=== PATIENT | male | born 1960 | race Caucasian/White ===

== ENCOUNTER 2022-11-21 08:27 | Inpatient (IN) ==
--- NOTE | 2022-10-17 10:05 | Anesthesiology Consultation ---
Date of Service October 17, 2022 Assessment & Plan (1) Encounter for pre-operative examination: Chart Review Chart Review: Acceptable Risk for Surgery (pending 10/16/22 PCP visit and preop Covid test 10/20/22 results ) and Patient NOT seen in Pre Admission Testing - Awaiting PCP office visit 10/16/22 (please fax for) -COVID screening: Per PAT nursing assessment on 10/17/22. Pt admits to recent cough- saw PCP 10/16/22 and PCP felt cough was not concerning. Due to patient being admission status and cough within 10 days of surgery- preop Covid test ordered for 10/20/22 to be done at [facility]- will await results. No known COVID-19 positive contacts or current COVID-19 related symptoms. Travel screen negative. Patient vaccinated for Covid. History Surgery Operation Date: 10/24/22 11:55 Proposed Procedures p L4-L5 Decompression and Fusion Instrumentation, Spinal Cord Monitoring - Sandor Chavez DO Height/Weight Height: 5 ft 9 in Weight: 129.274 kg Allergies Allergy/AdvReac Type Severity Reaction Status Date / Time Sulfa (Sulfonamide Allergy Severe SEVERE Verified 10/17/22 08:47 Antibiotics) RASH, HEADACHE tolmetin Allergy Unknown skin Verified 10/17/22 08:47 breakout, light sensitivity Medications Home Medications Medication Instructions Recorded Confirmed Last Taken amlodipine 10 mg tablet 10 mg PO QAM 08/27/22 10/17/22 08/27/22 atorvastatin 20 mg tablet 20 mg PO QAM 08/27/22 10/17/22 08/27/22 cholecalciferol (vitamin D3) 125 250 mcg PO QAM 08/27/22 10/17/22 08/27/22 mcg (5,000 unit) tablet (Vitamin D3) levothyroxine 25 mcg tablet 25 mcg PO QAM 08/27/22 10/17/22 08/27/22 (Synthroid) losartan 100 mg tablet 100 mg PO QAM 08/27/22 10/17/22 08/27/22 meloxicam 15 mg tablet 15 mg PO QAM 08/27/22 10/17/22 08/27/22 omeprazole 20 mg capsule,delayed 20 mg PO QAM 08/27/22 10/17/22 08/27/22 release sertraline 50 mg tablet 50 mg PO QAM 08/27/22 10/17/22 08/27/22 acetaminophen 500 mg tablet 1,000 mg PO Q6H PRN Pain 10/17/22 10/17/22 Unknown tramadol 50 mg tablet 50 mg PO Q12H PRN Pain 10/17/22 10/17/22 Unknown Past Medical History Medical History History of anxiety History of chronic back pain Hx of gastroesophageal reflux (GERD) Hyperlipidemia Hypertension Hypothyroidism Lumbar radiculopathy Past Surgical History Surgical History History of hip surgery 2012-resurface of rt. hip History of total left hip arthroplasty History of total left knee replacement Hx of colonoscopy w/ polypectomy Hx of inguinal hernia repair Social History Smoking Status: Never smoker Do You Dip or Chew Tobacco: No Hx Alcohol Use: Yes Alcohol type: beer alcohol intake frequency: a few times a month Hx Substance Use: No substance use type: does not use Lab Results Anesthesia Preop Results Results Anesthesia Widget: WBC 6.52 K/ul (4.8-10.8) 09/23/22 Hgb 14.6 g/dl (14.0-18.0) 09/23/22 Hct 42.6 % (40.1-51.0) 09/23/22 Plt 237 K/uL (130-400) 09/23/22 Na 138 mmol/L (136-145) 09/23/22 K 3.9 mmol/L (3.5-5.1) 09/23/22 Cl 107 mmol/L (98-107) 09/23/22 CO2 25 mmol/L (21-32) 09/23/22 BUN 20 mg/dl (6-23) 09/23/22 Creat 0.91 mg/dl (0.6-1.4) 09/23/22 Glucose Level 104 mg/dl (70-99(Fasting)) H 09/23/22 PT 10.3 Seconds (9.0-12.0) 09/23/22 PTT 28.3 Seconds (21.0-31.0) 09/23/22 INR 1.0 (0.9-1.1) 09/23/22 Urine Color Yellow 09/23/22 Urine Appearance Clear (Clear) 09/23/22 Urine pH 5.0 (4.5-7.5) 09/23/22 Urine Specific Lulu 1.020 (1.000-1.030) 09/23/22 Urine Protein Negative (Negative) 09/23/22 Urine Glucose (UA) Negative (Negative) 09/23/22 Urine Ketones Negative (Negative) 09/23/22 Urine Blood Negative (Negative) 09/23/22 Urine Nitrite Negative (Negative) 09/23/22 Urine Bilirubin Negative (Negative) 09/23/22 Urine Urobilinogen Negative (Negative) 09/23/22 Urine Leukocyte Esterase Negative (Negative) 09/23/22 Blood Type O Positive 09/23/22 Antibody Screen NEGATIVE 09/23/22 Testing Electrocardiogram Date: 09/23/22 SR with sinus arrhythmia with 1st degree AVB at 82bpm. Left axis deviation. When compared to EKG from May 26, 2013- NC interval has increased, QRS shifted left per cardio Chest X-Ray Date: 09/23/22 Findings: + NAD and + cardiomegaly (mild) Stress Test Date: 01/04/20 Type: exercise Exercise stress EKG is negative for ischemia at a workload of 10 METS. Patient did not, however, complete stage III of Yemi protocol. MPHR 88%. Stress test was stopped on account of the patient's complaint of dyspnea and fatigue, no chest pain was reported.
[~2022-11-21 08:27] MED LIST: ACETAMINOPHEN 500 MG TAB PO SCH; GABAPENTIN 600 MG DOSE PO SCH; LR 15ML/HR IV SCH; MIDAZOLAM HCL 1 MG/ML 2ML VIAL ONE; SUGAMMADEX SODIUM 200 MG/2 ML VIAL IV ONE; fentaNYL citrate 100 MCG/2 ML VIAL ONE
[2022-11-21] MEDS ORDERED: ePHEDrine sulfate 50 MG/ML AMP IV PRN (09:43)
[2022-11-21] MEDS ORDERED: ATROPINE SULFATE 0.1 MG/ML 10ML SYR IV PRN (09:43)
[2022-11-21] MEDS ORDERED: HYDROmorphone INJ 2 MG/ML SYR/VIAL IV PRN (09:43)
[2022-11-21] MEDS ORDERED: ONDANSETRON INJ 2 MG/ML 2 ML VIAL IV PRN ×2 (09:43→15:34)
--- NOTE | 2022-11-21 10:06 | History & Physical Bridge Note ---
Date of Service November 21, 2022 History & Physical Bridge Note I have examined the patient, reviewed the History & Physical and in the interval since the performance of the History & Physical I have noted the following changes of clinical significance: no changes noted
--- NOTE | 2022-11-21 10:07 | History & Physical Report ---
Date of Service November 21, 2022 Assessment & Plan (1) Neurogenic claudication due to lumbar spinal stenosis: Plan: L4-L5 decompression and fusion History of Present Illness Chief Complaint: Back and leg pain Primary Care Provider: Mahin Plummer This is a 61-year-old male presents with chronic persistent back and leg pain after failing such course of nonoperative care is here for surgical invention. Allergies Allergy/AdvReac Type Severity Reaction Status Date / Time Sulfa (Sulfonamide Allergy Severe SEVERE Verified 11/21/22 08:53 Antibiotics) RASH, HEADACHE tolmetin Allergy Unknown skin Verified 11/21/22 08:53 breakout, light sensitivity Home Medications Medication Instructions Recorded Confirmed Type amlodipine 10 mg tablet 10 mg PO QAM 08/27/22 11/21/22 History atorvastatin 20 mg tablet 20 mg PO QAM 08/27/22 11/21/22 History cholecalciferol (vitamin D3) 125 250 mcg PO QAM 08/27/22 11/21/22 History mcg (5,000 unit) tablet (Vitamin D3) levothyroxine 25 mcg tablet 25 mcg PO QAM 08/27/22 11/21/22 History (Synthroid) losartan 100 mg tablet 100 mg PO QAM 08/27/22 11/21/22 History meloxicam 15 mg tablet 15 mg PO QAM 08/27/22 11/21/22 History omeprazole 20 mg capsule,delayed 20 mg PO QAM 08/27/22 11/21/22 History release sertraline 50 mg tablet (Zoloft) 50 mg PO QAM 08/27/22 11/21/22 History acetaminophen 500 mg tablet 1,000 mg PO Q6H PRN Pain 10/17/22 11/21/22 History tramadol 50 mg tablet 50 mg PO Q12H PRN Pain 10/17/22 11/21/22 History Past Med/Surg History Medical History History of anxiety History of chronic back pain Hx of gastroesophageal reflux (GERD) Hyperlipidemia Hypertension Hypothyroidism Lumbar radiculopathy Surgical History History of hip surgery 2013-resurface of rt. hip History of total left hip arthroplasty History of total left knee replacement Hx of colonoscopy w/ polypectomy Hx of inguinal hernia repair Social History Smoking Status: Never smoker Second Hand Exposure: No; Do You Dip or Chew Tobacco: No; Tobacco Cessation Education Requested by Patient: No Hx Alcohol Use: Yes Alcohol type: beer Hx Substance Use: No Preferred Language: [place] Communication Ability: Effective Layer Out Required: No Beliefs That Will Affect Care: None Current Living Situation: Spouse Other Information That Helps Us Care for You: No Feels Safe at Home: Yes Safety Concerns: Feels Safe At This Time Assistive Devices: Glasses Assistive Devices Comment: reading glasses Physical Exam Physical Exam: Patient is alert and oriented Heart regular rhythm Lungs clear Results & Data Results & Data ([facility]) Vital Signs (Past 12 Hours) Vital Signs Temp Pulse Resp BP Pulse Ox O2 Del Method 11/21/22 08:55 36.7 C 75 18 134/86 96 Room Air
[2022-11-21] MEDS ORDERED: ceFAZolin 330 MG/ML 1 GM VIAL ONE (10:45)
[2022-11-21] MEDS ORDERED: BUPIVACAINE/EPINEPHRINE 0.25% 1:200,000 30 ML VIAL ONE (10:45)
[2022-11-21] MEDS ORDERED: ONDANSETRON INJ 2 MG/ML 2 ML VIAL ONE (11:50)
[2022-11-21] MEDS ORDERED: FLOSEAL HEMOSTATIC MATRIX 10ML TOP ONE (11:50)
[2022-11-21] MEDS ORDERED: PROPOFOL IV EMULSION 10 MG/ML 20 ML VIAL IV ONE (11:50)
[2022-11-21] MEDS ORDERED: LIDOCAINE 2% MPF LOCAL 5 ML VIAL INFIL ONE (11:50)
[2022-11-21] MEDS ORDERED: DEXAMETHASONE SOD INJ 4 MG/ML VIAL ONE (11:50)
[2022-11-21] MEDS ORDERED: ROCURONIUM BROMIDE 10 MG/ML 5 ML VIAL IV ONE ×8 (11:50→11:58)
[2022-11-21] MEDS ORDERED: KETAMINE 50 MG/5 ML SYRINGE ONE (11:51)
--- NOTE | 2022-11-21 12:40 | Operative Report ---
Post Operative Report Pre & Post Diagnosis Operation Date: 11/21/22 10:05 Pre-Op Diagnosis: Neurogenic Claudication due to Lumbar Spinal Stenosis Morbid obesity Post-Op Diagnosis: Same I identified the patient and participated in the time-out.: Yes Procedure Operation Date: 11/21/22 10:05 Actual Procedures #1 lumbar decompression bilateral medial facetectomies and foraminotomies L3-L4 L4-5. #2 posterior spinal fusion L4-L5. #3 placement posterior instrumentation L4-L5. #4 interbody fusion L4-5. #5 placement of Spira 15 x 26 mm at L4-5. #6 placement locally harvested morselized autograft in the posterior gutters. #7 placement of I factor combined with V toss in the interbody space and posterior lateral gutters. Surgeon Sandor Chavez, DO Pitch Flaker Khurram Castano Estimated Blood Loss 400 Findings See Below The patient is 5 foot 9 weighing over 126 kg with a BMI in excess of 41. The patient's body habitus did contribute to significant technical difficulty required deepest retractors longer instruments in order to perform his procedure. This had at least 50% increased operative time. Specimens None Indications This is a 61-year-old male who presents above-mentioned diagnosis after failing steps course of nonoperative care is here for surgical invention. Description of Procedure Patient was met with identified informed consent obtained. Patient was then taken to the operative suite underwent a patient placed in the prone position the [employer] top Amandeep frame. All bony prominences well-padded eyes inspected to ensure no external pressure placed upon the. This point the lumbar spine was prepped and draped in normal sterile fashion. Sharp dissection with the assistance of Bovie cautery performed down to and exposing the lamina and transverse processes of L4 and L5. From a caudal to cephalad fashion complete laminectomy of L4 was performed followed for partial laminectomy L3 was performed addressing severe central lateral recess and foraminal stenosis. Pedicle screws were then placed at L4 and L5 bilaterally with assistance of fluoroscopy and properly sized tee placed. By way of a transit foraminal approach and left complete discectomy of L4-L5 was performed endplates curetted to subcortical bleeding bone and a 15 x 26 mm spiral cage filled I factor tapped the position. The rods were then locked in final position bilaterally. The transverse processes of L4 and L5 burred to subcortical being bone. I factor combined with V toss and locally harvested morselized autograft was placed in the posterior gutters. 15 round PEGGY drain inserted. The incision was then closed with 1 Vicryl the fascia 2-0 Vicryl subcutaneously and 4 Monocryl for final skin closure. Steri-Strip sterile dressings placed. Patient waken taken to PACU in stable condition. Please note spinal cord body was utilized at the procedure no changes noted. Lastly Khurram Castano was present at the entire surgery involved the patient positioning complex portions of the surgery and fascial closure. I attest to the content of the Intraoperative Record and any orders documented therein. Any exceptions are noted below.
[2022-11-21] MEDS: fentaNYL citrate 100 MCG/2 ML VIAL IV PRN ×4 (13:30→13:55)
--- NOTE | 2022-11-21 13:35 | Fluoroscopy Report ---
FL lumbar spine 2-3V CLINICAL HISTORY: L4-L5 DECOMPRESSION AND FUSION POSSIBLE INTERBODY COMPARISON STUDY: MR lumbar spine 08/27/2022 FLUOROSCOPY TIME: 24.4 seconds FLUOROSCOPY IMAGES: 2 EXPOSURE DOSE: 23.97 mGy FINDINGS: Posterior interbody tee and screw fusion with discectomy at L4-L5. Hardware appears intact. No unexpected opaque foreign bodies identified. IMPRESSION: Fluoroscopic assistance as above. ACT 112: Negative or not required by law. Electronically signed by: Thai Ordonez M.D. 11/21/2022 1:34 PM
--- NOTE | 2022-11-21 14:45 | Anesthesiology Progress Note ---
Date of Service November 21, 2022 Anesthesia Post Procedure Vital Signs Vital Signs: Temp Pulse Pulse Resp BP Pulse Ox O2 Del Method 11/21/22 14:30 36.4 C L 68 16 132/87 92 Nasal Cannula 11/21/22 13:35 63 20 111/91 97 Oxymask 11/21/22 13:25 62 19 132/83 97 Oxymask 11/21/22 14:15 36.4 C L 74 14 146/91 H 93 Nasal Cannula 11/21/22 14:05 36.4 C L 72 16 124/92 98 Nasal Cannula 11/21/22 13:55 36.4 C L 71 11 L 118/84 94 Nasal Cannula 11/21/22 13:45 63 20 111/91 97 Oxymask 11/21/22 13:15 62 22 137/85 98 Oxymask 11/21/22 13:06 36.3 C L 74 20 139/81 99 Oxymask 11/21/22 08:55 36.7 C 75 18 134/86 96 Room Air O2 Flow Rate 11/21/22 14:30 2 11/21/22 13:35 4 11/21/22 13:25 4 11/21/22 14:15 2 11/21/22 14:05 2 11/21/22 13:55 2 11/21/22 13:45 4 11/21/22 13:15 5 11/21/22 13:06 5 11/21/22 08:55 Pain Intensity Back: Pain Intensity: 0 Transfer of Care Handoff Completed per policy Notes Mental Status: alert / awake / arousable and participated in evaluation Patient Amnestic to Procedure: Yes Nausea / Vomiting: adequately controlled Pain: adequately controlled Airway Patency, RR, SpO2: stable & adequate BP & HR: stable & adequate Hydration State: stable & adequate Anesthetic Complications: no major complications apparent and Pt Satisfied with anesthetic care
[2022-11-21] MEDS ORDERED: bisacodyL 10 MG SUPP PR PRN (15:34)
[2022-11-21] MEDS ORDERED: PROMETHAZINE HCL 12.5 MG in SODIUM CHLORIDE 0.9% 50 ML IV PRN (15:34)
[2022-11-21] MEDS ORDERED: hydrOXYzine HCl 25 MG TAB PO PRN (15:34)
[2022-11-21] MEDS ORDERED: ALUMINUM/MAGNESIUM SUSP 30 ML UDC PO PRN (15:34)
[2022-11-21] MEDS ORDERED: ACETAMINOPHEN 500 MG TAB PO PRN (15:34)
[2022-11-21] MEDS ORDERED: SOD PHOSPHATE/SOD BIPHOSPHATE ENEMA 132 ML BTL PR PRN (15:34)
[2022-11-21] MEDS ORDERED: METOCLOPRAMIDE HCL INJ 5 MG/ML 2 ML VIAL IV PRN (15:34)
[2022-11-21] MEDS ORDERED: ACETAMINOPHEN 1,000 MG/100 ML VIAL IV PRN (15:34)
[2022-11-21] MEDS ORDERED: NALOXONE HCL 0.4 MG/1 ML VIAL/CARP IV PRN (15:34)
[2022-11-21] MEDS ORDERED: ONDANSETRON 4 MG OD TAB PO PRN (15:34)
[2022-11-21] MEDS ORDERED: DO NOT ADMINISTER PNEUMOCOCCAL VACCINE PRN (15:34)
[2022-11-21] MEDS ORDERED: MAGNESIUM HYDROXIDE SUSP 30 ML UDC PO PRN (15:34)
[2022-11-21] MEDS ORDERED: LORazepam 2 MG/1 ML VIAL IV PRN (15:34)
[2022-11-21] MEDS ORDERED: diphenhydrAMINE Capsule 25 MG CAP PO PRN (15:34)
[2022-11-21] MEDS ORDERED: FAMOTIDINE 20 MG TAB PO PRN (15:34)
[2022-11-21] MEDS ORDERED: DO NOT ADMINISTER FLU VACCINE PRN (15:34)
[2022-11-21] MEDS ORDERED: HYDROmorphone INJ 0.5 MG/0.5 ML SYR IV PRN (15:34)
[2022-11-21] MEDS ORDERED: LORazepam 0.5 MG TAB PO PRN (15:34)
[2022-11-21] MEDS ORDERED: HYDROmorphone INJ 1 MG/ML SYRINGE IV PRN (15:34)
[2022-11-21] MEDS: LACTATED RINGER'S 1,000 ML IV SCH ×2 (16:03→22:44)
[2022-11-21] MEDS: oxyCODONE HCL IR 5 MG TAB (IMMEDIATE RELEASE) PO PRN (16:20)
--- NOTE | 2022-11-21 17:04 | Consultation ---
Date of Consultation November 21, 2022 Assessment & Plan (1) Neurogenic claudication due to lumbar spinal stenosis: (2) Status post lumbar surgery: Post op day# 0 S/P L3-L5 decompression, L4-L5 fusion by Dr Chavez EBCabrera #400 mL -pain management per ortho -wound management per ortho -PT/OT as appropriate -DVT prophylaxis per ortho -incentive spirometry -monitor H&H for acute blood loss anemia; pre-op Hgb: 14.6 (3) Hypertension: Stable -Continue amlodipine, losartan with holding parameters (4) Hyperlipidemia: - Continue atorvastatin (5) Hypothyroidism: - Continue levothyroxine (6) Hx of gastroesophageal reflux (GERD): - Continue PPI (7) History of anxiety: - Continue sertraline DVT Prophylaxis -SCDs Disposition per primary service Follows with Dr Plummer in [place] for routine care Pt was seen and care coordinated with Dr Knight. See addendum Thank you for this consultation. We will follow the patient with you during their hospital stay. You can reach a member of the [facility] Hospitalist Team 18/05 via [employer] Supervising Physician Co-Signing Physician Notes Attending addendum: The patient was seen and examined in medical floor He is a status post L4-L5 decompression and fusion Minimal pain at the back without any radiation Denies any other symptoms On examination Sitting on a chair without any acute distress Hemodynamically stable Chestclear to auscultate bilaterally HeartS1, S2, regular Abdomenbenign Extremitiestrace edema bilaterally His preop labs, imaging studies and EKG reviewed Remains medically stable following lumbar decompression fusion We will monitor hemoglobin and electrolytes Agree with assessment and plan as outlined above by PATO Villagomez Dr History of Present Illness Requesting Physician: Dr Chavez Reason for Consultation: Post op medical management Attending Physician: Sandor Chavez DO History of Present Illness Patient is 61-year-old male with PMH HTN, HLD, hypothyroidism, anxiety, GERD seen in medical consultation s/p L3-L5 decompression, L4-L5 fusion today by Dr. Chavez. Postop patient reports pain controlled. Denies extremity pain or paresthesias. Drinking water without difficulty. Denies nausea, vomiting. Last BM this morning. Has urinated once since coming to floor. Denies fever/chills, diaphoresis, N/V/D/C, KING, dizziness, neck pain, CP, SOB, cough, choking, rhinorrhea, abdominal pain, paresthesias, extremity weakness, extremity edema, rashes, urinary symptoms. Allergies Allergy/AdvReac Type Severity Reaction Status Date / Time Sulfa (Sulfonamide Allergy Severe SEVERE Verified 11/21/22 08:53 Antibiotics) RASH, HEADACHE tolmetin Allergy Unknown skin Verified 11/21/22 08:53 breakout, light sensitivity Home Medications Medication Instructions Recorded Confirmed Type amlodipine 10 mg tablet 10 mg PO QAM 08/27/22 11/21/22 History atorvastatin 20 mg tablet 20 mg PO QAM 08/27/22 11/21/22 History cholecalciferol (vitamin D3) 125 250 mcg PO QAM 08/27/22 11/21/22 History mcg (5,000 unit) tablet (Vitamin D3) levothyroxine 25 mcg tablet 25 mcg PO QAM 08/27/22 11/21/22 History (Synthroid) losartan 100 mg tablet 100 mg PO QAM 08/27/22 11/21/22 History meloxicam 15 mg tablet 15 mg PO QAM 08/27/22 11/21/22 History omeprazole 20 mg capsule,delayed 20 mg PO QAM 08/27/22 11/21/22 History release sertraline 50 mg tablet (Zoloft) 50 mg PO QAM 08/27/22 11/21/22 History acetaminophen 500 mg tablet 1,000 mg PO Q6H PRN Pain 10/17/22 11/21/22 History tramadol 50 mg tablet 50 mg PO Q12H PRN Pain 10/17/22 11/21/22 History Patient History Medical History (Updated 11/21/22 @ 17:24 by Amy Arreola PA-C) History of anxiety History of chronic back pain Hx of gastroesophageal reflux (GERD) Hyperlipidemia Hypertension Hypothyroidism Lumbar radiculopathy Surgical History (Updated 11/21/22 @ 17:24 by Amy Arreola PA-C) History of hip surgery 2013-resurface of rt. hip History of total left hip arthroplasty History of total left knee replacement Hx of colonoscopy w/ polypectomy Hx of inguinal hernia repair Social History Smoking Status: Never smoker Second Hand Exposure: No; Do You Dip or Chew Tobacco: No; Tobacco Cessation Education Requested by Patient: No Hx Alcohol Use: Yes Alcohol type: beer Hx Substance Use: No Preferred Language: Citizen [place] Communication Ability: Effective Doll Surgeon Required: No Beliefs That Will Affect Care: None Current Living Situation: Spouse Other Information That Helps Us Care for You: No Feels Safe at Home: Yes Safety Concerns: Feels Safe At This Time Assistive Devices: Glasses Assistive Devices Comment: reading glasses Review of Systems Review of Systems: All systems reviewed & are unremarkable except as noted in HPI & below Physical Exam Physical Exam: General: no distress, obese Head: normocephalic, atraumatic Eyes: conjunctiva non-injected, anicteric ENT: normal inspection external ears, nose, mucous membranes moist Neck: supple, trachea midline, non-tender Lungs: clear, no respiratory distress, no wheezing/rhonchi/rales CV: RRR, no murmur, no pretibial edema Abd: protuberant, normal BS, soft, non-tender Back: Surgical dressing in place and dry, PEGGY drain in place with serosanguineous drainage Ext: no cyanosis, no calf tenderness, bilateral pedal pushes and pulls intact, distal pulses intact bilaterally, sensation to light touch intact bilateral lower extremities Neuro: A&O x 3, no focal deficits noted, normal affect Skin: warm, dry Results & Data ([facility]) Vital Signs (Past 12 Hours) Vital Signs Temp Pulse Pulse Resp BP Pulse Ox O2 Del Method 11/21/22 16:24 36.4 C L 63 16 125/75 93 Nasal Cannula 11/21/22 15:58 36.5 C 71 16 113/70 93 Nasal Cannula 11/21/22 15:28 36.7 C 69 16 128/82 93 Nasal Cannula 11/21/22 14:45 36.4 C L 65 17 116/81 94 Nasal Cannula 11/21/22 14:30 36.4 C L 68 16 132/87 92 Nasal Cannula 11/21/22 13:35 63 20 111/91 97 Oxymask 11/21/22 13:25 62 19 132/83 97 Oxymask 11/21/22 14:15 36.4 C L 74 14 146/91 H 93 Nasal Cannula 11/21/22 14:05 36.4 C L 72 16 124/92 98 Nasal Cannula 11/21/22 13:55 36.4 C L 71 11 L 118/84 94 Nasal Cannula 11/21/22 13:45 63 20 111/91 97 Oxymask 11/21/22 13:15 62 22 137/85 98 Oxymask 11/21/22 13:06 36.3 C L 74 20 139/81 99 Oxymask 11/21/22 08:55 36.7 C 75 18 134/86 96 Room Air O2 Flow Rate 11/21/22 16:24 1 11/21/22 15:58 2 11/21/22 15:28 2 11/21/22 14:45 2 11/21/22 14:30 2 11/21/22 13:35 4 11/21/22 13:25 4 11/21/22 14:15 2 11/21/22 14:05 2 11/21/22 13:55 2 11/21/22 13:45 4 11/21/22 13:15 5 11/21/22 13:06 5 11/21/22 08:55
[2022-11-21] MEDS: ceFAZolin 2000MG 2,000 MG/15 ML SYR IV SCH (19:48)
[2022-11-21] MEDS: DOCUSATE SODIUM/SENNA 50/8.6MG TAB PO SCH (19:48)
[2022-11-21] MEDS: traMADol HCL 50 MG TABLET PO PRN (19:55)
[2022-11-22] MEDS: oxyCODONE HCL IR 5 MG TAB (IMMEDIATE RELEASE) PO PRN ×2 (00:12→10:07)
[2022-11-22] MEDS: ceFAZolin 2000MG 2,000 MG/15 ML SYR IV SCH (02:50)
[2022-11-22] MEDS: POLYETHYLENE (MIRALAX) 17 GM PACK PO SCH ×3 (05:40→17:38)
[2022-11-22] MEDS: traMADol HCL 50 MG TABLET PO PRN ×3 (05:46→20:11)
[2022-11-22] MEDS: LACTATED RINGER'S 1,000 ML IV SCH (06:11)
[2022-11-22] MEDS: SERTRALINE HCL 50 MG TABLET PO SCH (08:03)
[2022-11-22] MEDS: amLODIPine BESYLATE 5 MG TAB PO SCH (08:03)
[2022-11-22] MEDS: ATORVASTATIN 20 MG TAB PO SCH (08:03)
[2022-11-22] MEDS: dexAMETHasone 6 MG in SYRINGE 0 ML IV SCH (08:03)
[2022-11-22] MEDS: PANTOprazole 40 MG TAB PO SCH (08:03)
[2022-11-22] MEDS: CHOLECALCIFEROL 5,000 UNITS 125 MCG TAB PO SCH (08:03)
[2022-11-22] MEDS: LOSARTAN POTASSIUM 50 MG TAB PO SCH (08:05)
[2022-11-22 08:19] LABS: Basophils # (auto) 0.02 K/uL (0-0.2); Basophils % (auto) 0.2 %; Eosinophils # (auto) 0.01 K/uL (0-0.50); Eosinophils % (auto) 0.1 %; Hematocrit (blood only) 36.5 % (42.0-52.0); Hemoglobin 12.3 g/dl (14.0-18.0); Immature Granulocytes # (auto) 0.06 K/uL (0.01-0.20); Immature Granulocytes % (auto) 0.5 %; Lymphocytes # (auto) 1.48 K/uL (1.2-3.4); Mean Corpuscular Hemoglobin 30.1 pg (25.0-34.0); Mean Corpuscular Hgb Conc 33.7 g/dL (32.0-36.0); Mean Corpuscular Volume 89.2 fL (80.0-100.0); Mean Platelet Volume 11.4 fL (9.4-12.4); Monocytes # (auto) 0.73 K/uL (0.11-0.59); Monocytes % (auto) 6.4 %; Neutrophils # (auto) 9.12 K/uL (1.40-6.50); Neutrophils % (auto) 79.8 %; Platelet Count 250 K/uL (130-400); RDW Coefficient of Variation 13.3 % (11.5-14.5); RDW Standard Deviation 43.7 fL (36.4-46.3); Red Blood Count 4.09 M/uL (4.70-6.10); White Blood Count 11.42 K/ul (4.8-10.8)
--- NOTE | 2022-11-22 08:35 | Orthopedic Progress Note ---
Date of Service November 22, 2022 Assessment & Plan (1) Neurogenic claudication due to lumbar spinal stenosis: Plan: This time initiate physical therapy manage his PEGGY operatively discharge home tomorrow or Thursday. Admission and Anticipated Discharge Date Admission Date: November 21, 2022 Subjective Back pain controlled leg symptoms markedly improved Physical Exam Physical Exam: Patient is in the chair at the bedside. He has good strength t esting. Peers comfortable. Results & Data ([facility]) Vital Signs (Past 12 Hours) Vital Signs Temp Pulse Resp BP Pulse Ox O2 Del Method 11/22/22 07:47 70 92 Room Air 11/22/22 07:45 36.5 C 66 16 143/76 H 91 Room Air 11/22/22 03:00 36.5 C 76 18 125/76 92 Room Air 11/21/22 22:57 36.4 C L 64 18 135/78 95 Room Air
[2022-11-22 08:42] LABS: Calcium 8.6 mg/dl (8.5-10.1)
[2022-11-22 08:48] LABS: BUN Creatinine Ratio 22.1 (10-20); Creatinine Clr Calc Pharmacy 117.2 ml/min; Est GFR (African American) 107.7 ml/min; Est GFR (Non-African American) 92.9 ml/min
[2022-11-22] MEDS ORDERED: LEVOTHYROXINE SODIUM 25 MCG TABLET PO SCH (09:00)
--- NOTE | 2022-11-22 14:08 | Hospitalist Progress Note ---
Date of Service November 22, 2022 Assessment & Plan (1) Neurogenic claudication due to lumbar spinal stenosis: (2) Status post lumbar surgery: Plan: Post op day# 1 S/P L3-L5 decompression, L4-L5 fusion by Dr Kathy TAVAREZ #400 mL -pain management per ortho -wound management per ortho -PT/OT as appropriate -DVT prophylaxis per ortho -incentive spirometry -Likely acute blood loss anemia/post op: HnH dropped to 12.3 from >14.6 preop; likely dilutional or tico op blood loss. monitor H&H ; pt w/ no s/s of anemia. (3) Hypertension: Plan: Stable -Continue amlodipine, losartan with holding parameters (4) Hyperlipidemia: Plan: - Continue atorvastatin (5) Hypothyroidism: Plan: - Continue levothyroxine (6) Hx of gastroesophageal reflux (GERD): Plan: - Continue PPI (7) History of anxiety: Plan: - Continue sertraline DVT Prophylaxis -SCDs Disposition per primary service Follows with Dr Plummer in [place] for routine care Admission and Anticipated Discharge Date Admission Date: November 21, 2022 Subjective Patient seen and examined at bedside as a follow-up of medical management for status post lumbar surgery for neurogenic claudication due to lumbar spinal stenosis. Patient was sitting up in chair, on room air, NAD, reports no new acute events overnight, reports eating okay, has not moved bowel, is moving gas, reports low back pain under control and only has some operative site pain, reports improvement in his RLE greater than LLE numbness/tingling sensation that was there prior to surgery. Denies other review of symptoms. Physical Exam Physical Exam: GENERAL: Alert and oriented x3. NAD, on RA. HEENT: No pallor, no icterus. Pupils equal, round and reactive to light. Oral mucosa moist. NECK: No JVD, no neck masses. HEART: S1 and S2 heard. Regular rate and rhythm. No murmur, no gallop. RESPIRATORY SYSTEM: Normal AP diameter. No accessory muscle use. No wheezing, no crackles. ABDOMEN: Soft, bowel sounds present, nontender, no distention. CENTRAL NERVOUS SYSTEM: No facial droop. Speech is clear. Obeys simple commands. Moves extremities. EXTREMITIES: trace edema, no erythema seen. Lower back with clean dressing without soakage. PEGGY drain with serosanguineous collection noted. Results & Data Results & Data ([facility]) Vital Signs (Past 12 Hours) Vital Signs Temp Pulse Resp BP Pulse Ox O2 Del Method 11/22/22 12:04 36.6 C 91 H 18 148/77 H 95 Room Air 11/22/22 07:47 70 92 Room Air 11/22/22 07:45 36.5 C 66 16 143/76 H 91 Room Air 11/22/22 03:00 36.5 C 76 18 125/76 92 Room Air
[2022-11-22] MEDS: DOCUSATE SODIUM/SENNA 50/8.6MG TAB PO SCH (20:11)
[2022-11-23] MEDS: POLYETHYLENE (MIRALAX) 17 GM PACK PO SCH ×3 (00:35→12:06)
[2022-11-23] MEDS: oxyCODONE HCL IR 5 MG TAB (IMMEDIATE RELEASE) PO PRN ×2 (00:40→12:06)
[2022-11-23] MEDS: traMADol HCL 50 MG TABLET PO PRN ×2 (06:04→14:04)
[2022-11-23] MEDS ORDERED: LEVOTHYROXINE SODIUM 25 MCG TABLET PO SCH (06:30)
[2022-11-23 07:02] LABS: Hematocrit (blood only) 35.2 % (42.0-52.0); Hemoglobin 11.8 g/dl (14.0-18.0)
[2022-11-23] MEDS: amLODIPine BESYLATE 5 MG TAB PO SCH (08:50)
[2022-11-23] MEDS: PANTOprazole 40 MG TAB PO SCH (08:51)
[2022-11-23] MEDS: ATORVASTATIN 20 MG TAB PO SCH (08:51)
[2022-11-23] MEDS: SERTRALINE HCL 50 MG TABLET PO SCH (08:51)
[2022-11-23] MEDS: LOSARTAN POTASSIUM 50 MG TAB PO SCH (08:51)
[2022-11-23] MEDS: dexAMETHasone 6 MG in SYRINGE 0 ML IV SCH (08:51)
[2022-11-23] MEDS: CHOLECALCIFEROL 5,000 UNITS 125 MCG TAB PO SCH (08:51)
--- NOTE | 2022-11-23 11:19 | Discharge Summary ---
Date of Service November 23, 2022 Admission HPI Per Admitting Provider This is a 61-year-old male presents with chronic persistent back and leg pain after failing such course of nonoperative care is here for surgical invention. Principal Diagnosis Lumbar spinal stenosis with neurogenic medication Discharge Data Allergies Allergy/AdvReac Type Severity Reaction Status Date / Time Sulfa (Sulfonamide Allergy Severe SEVERE Verified 11/21/22 08:53 Antibiotics) RASH, HEADACHE tolmetin Allergy Unknown skin Verified 11/21/22 08:53 breakout, light sensitivity Consultations 11/21/22 15:34 Consult Hospitalist Routine Procedures Performed Operation Date: 11/21/22 10:05 Actual Procedures p L4-L5 Decompression and Fusion, Spinal Cord Monitoring(Not Applicable) - Sandor Chavez DO Ordered Studies 11/21/22 10:05 [place] lumbar spine 2-3V Routine Hospital Course (1) Neurogenic claudication due to lumbar spinal stenosis: Patient went impression patient tolerated this well was taken to orthopedic for postoperative. Postop day 1 he was up and ambulating progressed to postop day #2. Excellent strength testing. Pain well controlled. PEGGY drain decreasing probably. Socially discharged home. Discharge orders instructions from the chart for further review. Total Time Total Time Spent Total Time Spent (In Minutes): 20 minutes Discharge Plan Discharge Items Patient Disposition: Home - Self-Care Reason For Visit: POSTOP Discharge Diagnosis: Lumbar spinal stenosis with neurogenic claudication Activity: As commented below Non-emergency contact: Primary Care Provider Call non-emergency contact if: you have any medication questions Follow-up/Referrals: Mahin Plummer [Primary Care Provider] - Diet: Regular Ambulatory Orders: SARS CoV2 RNA(COVID-19)[place] (Routine) Timeframe: [id number] Facility: [facility] - Location: [facility] [place] Ordered By: Lazara Vo Attending Provider Instructions: ACTIVITY RECOMMENDATIONS: SELF CARE INSTRUCTIONS AFTER THORACIC/LUMBAR FUSIONS 1. You may walk to your tolerance. It is good exercise for your legs and back. Expect some back and intermittent leg aches and pains. 2. You may perform "counter-top" level activities (make a sandwich, bret with a project, etc.). 3. No bending or lifting of more than 10 pounds or back twisting of any nature (roll like a log when turning in bed). 4. You may ride in a car for 20-30 minutes at a time. No driving until after your first visit with your doctor. 5. Frequent changes of position and restricting sitting to 30 minutes at a time will help limit the amount of back spasms and stiffness you may experience. 6. You may discontinue the use of ambulatory aids (cane, crutches, etc.) once your strength and confidence allow. 7. You may finish rolls operator the shower and let water strike your incision when you arrive home at least once daily. Do not take a tub bath, sit in a hot tub or go into a swimming pool until after your first recheck in the office. SPECIAL CARE INSTRUCTIONS: VERY IMPORTANT TO READ AND REVIEW A. Your surgical incision has been closed with a cosmetic suture under the skin that will dissolve in about 6 weeks. In 14 days, you can use a pair of clean scissors and cut the suture that is left outside of the skin at the ends of your incision. 1. The small skin tapes can be removed 7 days after surgery if they have not fallen off by that point. 2. You may keep the wound open to air as much as possible to promote healing after post-op day number 5 unless told otherwise by your doctor. 3. If you think the wound looks like it is becoming infected (redness or worsening drainage) and/or you are experiencing fever, chill or worsening back pain and muscle spasms, contact the office so that we may evaluate you as soon as possible. B. Complications are uncommon, but please contact us if you have any signs or symptoms of: 1. wound infection (fever higher than 102.5 degrees F, redness, separation of wound, drainage, or increasing pain from the incision) 2. blood clots in legs (pain, swelling, redness and warmth in legs) 3. urinary tract infection (fever higher than 102.5 degrees F, burning upon urination or increased frequency of urination) 4. nerve problems (inability to walk on your toes or heels, numbness, loss of bowel or bladder control) 5. any other symptoms that concern you C. Please call the office at if you have any concerns or questions about your operation or recovery. D. No smoking! Smoking drastically decreases the chance of a solid fusion. E. Do not take any anti-inflammatory medications (Indocin, Advil, Motrin, Aspirin, Naprosyn, etc.) as these may inhibit the chance of a solid fusion. Tylenol is okay to take for pain. MANAGING PAIN AFTER SPINAL SURGERY 1. Narcotic medication is intended for short-term use and will be provided for surgical pain. Surgical pain usually lasts for a period of 4-6 weeks. Narcotic medication includes Percocet, Vicodin, Darvocet, Tylenol #3 or Lortab. 2. Longer-term pain is more appropriately treated with non-narcotic medication such as Tylenol ES. 3. Muscle spasm is not appropriately treated with narcotics. Muscle relaxers such as Soma, Flexeril or Skelaxin can be used along with Tylenol ES. 4. Remember that we all live with some "aches and pains". This is not unusual or uncommon after an injury or as we get older. a. Back pain is expected and may include muscle spasms for 4 to 6 weeks after surgery. The pain should gradually improve. If the pain worsens for no apparent reason, please contact the office. b. Intermittent leg pain may also be experienced and should not be concerned about unless it worsens for no apparent reason. If so, please contact the office. 5. We will provide appropriate medication within the normal guidelines of their prescribed use. We will also be very cautious and aware of potential abuse and extended duration of patients' medication needs. a. Pain medications are for your comfort and to assist with sleep and rest so that the tissue can heal. They are not provided in order to return to normal activity and should not be used through the day. To do so or worsening pain at night can result from ongoing tissue damage and development of tolerance to the prescribed medicine. 6. Please allow 2-3 days to process refills. Prescriptions will not be mailed but must be picked up at the office. FOLLOW UP VISIT: Keep your scheduled follow-up appointment. Any questions, please call the office at . Pending Studies at Discharge: No Stand-Alone Forms: My Ticies, Smoking Cessation Medications and DC Order Prescriptions: New tramadol 50 mg tablet 50 mg PO Q6H PRN (Reason: pain, moderate) Qty: 30 0RF oxycodone 5 mg tablet 5 mg PO Q6H PRN (Reason: pain, severe) Qty: 30 0RF Continued atorvastatin 20 mg tablet 20 mg PO QAM meloxicam 15 mg tablet 15 mg PO QAM levothyroxine [Synthroid] 25 mcg tablet 25 mcg PO QAM amlodipine 10 mg tablet 10 mg PO QAM omeprazole 20 mg capsule,delayed release(DR/EC) 20 mg PO QAM losartan 100 mg tablet 100 mg PO QAM sertraline [Zoloft] 50 mg tablet 50 mg PO QAM cholecalciferol (vitamin D3) [Vitamin D3] 125 mcg (5,000 unit) Tablet 250 mcg PO QAM tramadol 50 mg Tablet 50 mg PO Q12H PRN (Reason: Pain) acetaminophen 500 mg Tablet 1,000 mg PO Q6H PRN (Reason: Pain) Discharge Orders: Discharge Order (Routine); Ordered 11/23/22 Ordered By: Sandor Chavez Admission Data Admit Date/Time: 11/21/22 12:46 Attending Provider: Sandor Chavez Admit Provider: Sandor Chavez Primary Care Provider: Mahin Plummer Other Providers: Ade Gao ; Sanjuana Stevenson
--- NOTE | 2022-11-23 14:14 | Hospitalist Progress Note ---
Date of Service November 23, 2022 Assessment & Plan (1) Neurogenic claudication due to lumbar spinal stenosis: (2) Status post lumbar surgery: Plan: Post op day# 2 S/P L3-L5 decompression, L4-L5 fusion by Dr Kathy TAVAREZ #400 mL -pain management per ortho -wound management per ortho -PT/OT as appropriate -DVT prophylaxis per ortho -incentive spirometry -Likely acute blood loss anemia/post op: HnH dropped to 12.3 from >14.6 preop; likely dilutional or tico op blood loss. monitor H&H w/ occurrence of s/s of anemia ; pt w/ no s/s of anemia. (3) Hypertension: Plan: Stable -Continue amlodipine, losartan with holding parameters (4) Hyperlipidemia: Plan: - Continue atorvastatin (5) Hypothyroidism: Plan: - Continue levothyroxine (6) Hx of gastroesophageal reflux (GERD): Plan: - Continue PPI (7) History of anxiety: Plan: - Continue sertraline DVT Prophylaxis -SCDs Disposition per primary service Follows [place] care Admission and Anticipated Discharge Date Admission Date: November 21, 2022 Subjective Patient seen and examined at bedside as a follow-up of medical management for status post lumbar surgery for neurogenic claudication due to lumbar spinal stenosis. Patient was sitting up in chair, on room air, NAD, reports no new acute events overnight, reports eating okay, has not moved bowel, is moving gas, reports low back pain under control, reports improvement in his RLE greater than LLE numbness/tingling sensation that was there prior to surgery. Denies other review of symptoms. Physical Exam Physical Exam: GENERAL: Alert and oriented x3. NAD, on RA. HEENT: No pallor, no icterus. Pupils equal, round and reactive to light. Oral mucosa moist. NECK: No JVD, no neck masses. HEART: S1 and S2 heard. Regular rate and rhythm. No murmur, no gallop. RESPIRATORY SYSTEM: Normal AP diameter. No accessory muscle use. No wheezing, no crackles. ABDOMEN: Soft, bowel sounds present, nontender, no distention. CENTRAL NERVOUS SYSTEM: No facial droop. Speech is clear. Obeys simple commands. Moves extremities. EXTREMITIES: trace edema, no erythema seen. Lower back with clean dressing without soakage. PEGGY drain with minimal serosanguineous collection noted. Results & Data Results & Data ([facility]) Vital Signs (Past 12 Hours) Vital Signs Temp Pulse Resp BP Pulse Ox O2 Del Method 11/23/22 07:38 36.5 C 60 16 128/77 94 Room Air
== END 2022-11-23 15:05 | disposition home or self-care (01) | DRG 454 ==
LOC: ASU 08:27 → PACUINP 12:46 → 3E 15:34